=== PATIENT | female | born 1940 | race Caucasian/White ===

== ENCOUNTER → 2018-03-17 | Outpatient (REF) | payer MEDICARE ==
[~2018-03-17] MED LIST: ATOR20TA22 PO; ATOR40TA69 PO; CALC-475 PO; FISH OIL1 CAP PO; FLAX100030 PO; MULT-1 PO
== END ==
LOC: ZZSENDIN 10:46
PROVIDERS: ATTEND Physician Assistant
DX: Z01.812 Encounter for preprocedural laboratory examination (principal)
CPT/HCPCS: 81001; 87088

== ENCOUNTER → 2018-10-21 | Outpatient (CLI) | payer MEDICARE ==
--- NOTE | 2018-10-21 09:59 | RADIOLOGY IMAGING REPORT ---
FACILITY: [facility] PATIENT NAME: Julia Fletcher : 1940 MR: [id number] V: [id number] EXAM DATE: ORDERING PHYSICIAN: YING CRUM TECHNOLOGIST: Location: [facility] [place] Patient: Julia Fletcher : 1940 Visit/Account:[id number] Date of Sevice: 10/21/2018 Clinical history: Postmenopausal screening. Comparison: 04/08/2013. LUMBAR SPINE: The bone mineral density (BMD) measured from L1-L4 correlates with a Z-score of 3.9 and a T-score of 2.5 which is normal as defined by the World Health Organization. The corresponding risk of fracture in the lumbar spine is not increased compared with a young adult reference population. This value patricio s increased by 0.8 % since the prior study. More than 5% change is considered significant. Of note, bone mineral density values may be artificially elevated due to sclerosis related to degenerative di sease. HIP: Bone mineral density (BMD) measured in the left Total Hip region correlates with a Z-score of 1.4 and a T-score of -0.2 which is normal as defined by the World Health Organization. The corresponding ri sk of fracture in the hip is not increased compared with a young adult reference population. This va lue has decreased by 6.5 % since the prior study. More than 5% change is considered significant. Bone mineral density (BMD) measured in the left femoral neck correlates with a Z-score of 1.0 and a T -score of -0.8 which is normal as defined by the World Health Organization. The corresponding risk o f fracture in the hip is increased 1-2 times compared with a young adult reference population. This value has decreased by 2.9 % since the prior study. More than 5% change is considered significant. Bone mineral density (BMD) measured in the left Femoral Neck region measures 0.930 g/cm2. IMPRESSION: 1. Lumbar spine: Normal. There has been no significant change in the bone mineral density since th previous exam. 2. Left total hip: Normal. There has been significant decrease in the bone mineral density since the previous exam. 3. Left Femoral Neck: Normal. There has been no significant change in the bone mineral density since the previous exam 4. Left femoral neck bone mineral density: 0.930 g/cm2. The next DEXA scan of this patient should include the following sites: Lumbar spine and left hip. FRAX(R) WHO Fracture Risk Assessment Tool link: http://www.shef.ac.uk/FRAX/tool.jsp?locationValue=9 PLEASE NOTE: 1) The World Health Organization defines low BMD as follows: T-score Normal > -1 Osteopenia < -1 and > -2.5 Osteoporosis < -2.5 without fractures Established osteoporosis < -2.5 with fractures 2) In general, you may wish to consider: Diagnosis Treatment Follow-up DEXA Normal BMD Prevention 2-3 years Osteopenia Prevention/therapy 1-2 years Osteoporosis Therapy Yearly 3) Fracture risk estimated from the T-score is more accurate for vertebral fractures (often spontane ous) than for hip fractures Report Dictated By: Sparkle Valencia MD at 10/21/2018 9:50 AM Report E-Signed By: Sparkle Valencia MD at 10/21/2018 9:54 AM WSN:[id number]
--- NOTE | 2018-10-22 08:26 | RADIOLOGY IMAGING REPORT ---
FACILITY: [facility] - [place] PATIENT NAME: SHAUNA GONSALEZ : [id number] MR: [id number] V: [id number] EXAM DATE: ORDERING PHYSICIAN: YING CRUM TECHNOLOGIST: Neris Narvaez PROCEDURE:BILATERAL DIGITAL SCREENING MAMMOGRAM WITH CAD ASSISTED INTERPRETATION & 3D TOMOSYNTHESIS COMPARISON:Prior mammograms 10/01/17, 06/20/17, 06/04/17, 05/31/16, 05/25/15. INDICATIONS:SCREENING FINDINGS: The breasts are heterogeneously dense which can obscure small masses. Course benign appearing calcifications are again noted bilaterally. There is a biopsy clip in the medial upper Left breast junction of the anterior middle 1/3. The parenchymal pattern otherwise remained stable. DIAGNOSTIC CATEGORY 2--BENIGN FINDING. RECOMMENDATIONS: ROUTINE MAMMOGRAM AND CLINICAL EVALUATION. IMPRESSION: BIRADS 2: Benign finding. No significant abnormality is seen. Dictated by: Katherine Penn M.D. on 10/21/2018 at 16:50 Transcribed by: MAUREEN on 10/22/2018 at 8:01 Approved by: Katherine Penn M.D. on 10/22/2018 at 8:25 [facility]
== END ==
LOC: MAMO 00:56
PROVIDERS: ATTEND Physician Assistant
DX: Z12.31 Encounter for screening mammogram for malignant neoplasm of breast (principal); N95.8 Other specified menopausal and perimenopausal disorders
CPT/HCPCS: 77063; 77067; 77080